=== PATIENT | male | born 2005 | race Caucasian/White ===

== ENCOUNTER 2024-02-13 15:18 | Emergency (ER) | payer OTHER ==
[~2024-02-13] VITALS: Ht 177.8 cm; Wt 70.5 kg
[2024-02-13 15:21] VITALS: TEMP 97.4
[2024-02-13] MEDS ORDERED: Morphine 4 MG/ML VIAL IV ONE (15:45)
[2024-02-13] MEDS ORDERED: LR 1,000 ML IV ONE (15:45)
[2024-02-13] MEDS ORDERED: Ondansetron 4 MG/2 ML VIAL IV ONE (15:45)
[2024-02-13 17:37] VITALS: BP 137/73; PULSE 93
== END 2024-02-13 17:22 | disposition home or self-care (01) ==
LOC: COL.ER 15:18
DX: S52.592A Other fractures of lower end of left radius, initial encounter for closed fracture (principal); W18.30XA Fall on same level, unspecified, initial encounter
CPT/HCPCS: J2270; J2405; J2704; J7120